=== PATIENT | female | born 1935 | race Caucasian/White ===

== ENCOUNTER → 2022-02-14 10:19 | Outpatient (BNVA) | payer MEDICARE, SELFPAY | PROVIDERS: PCP Surgery; Visit Provider Internal Medicine Rheumatology | DX: M35.3 Polymyalgia rheumatica (principal); M19.041 Primary osteoarthritis, right hand; M19.042 Primary osteoarthritis, left hand; M47.816 Spondylosis without myelopathy or radiculopathy, lumbar region | CPT/HCPCS: 99202 ==

== ENCOUNTER 2022-05-09 11:58 | Outpatient (REF) | payer MEDICARE, SELFPAY ==
[2022-05-09 13:38] LABS: MANUAL DIFF FLAG NO
[2022-05-09 13:43] LABS: Basophils Percent Auto 0.5 % (0-2); Eosinophils Percent Auto 0.7 % (0-4); Hemoglobin 13.3 g/dl (12.0-16.0); Imm Gran Abs Auto 0.03 X10*3/uL (0.00-0.03); Imm Gran Pct Auto 0.5 % (0.0-0.4); Lymphocytes Absolute Auto 2.1 X10*3/uL (1.2-4.9); Lymphocytes Percent Auto 33.9 % (20-40); Mean Corpuscular HGB Conc 32.4 g/dl (31.0-35.0); Mean Corpuscular Hemoglobin 28.3 pg (27.0-33.0); Mean Corpuscular Volume 87.2 fL (80.0-98.0); Mean Platelet Volume 10.1 fL (9.4-12.3); Monocytes Absolute Auto 0.5 X10*3/uL (0.1-1.2); Monocytes Percent Auto 8.5 % (2-11); Neutrophils Absolute Auto 3.4 x10*3/uL (2.0-8.3); Neutrophils Percent Auto 55.9 % (45-73); Platelet Count 171 X10*3/uL (160-400); Red Cell Distribution Width 13.6 % (11.0-16.0); White Blood Count 6.1 X10*3/uL (4.8-10.8)
[2022-05-09 14:22] LABS: C Reactive Protein 0.24 mg/dL (< or = 0.50)
[2022-05-09 14:35] LABS: Erythrocyte Sedimentation Rate 31 MM/HR (0-20)
== END 2022-05-09 11:59 | disposition home or self-care (01) ==
LOC: HO.10HDL 11:58
PROVIDERS: Visit Provider Internal Medicine Rheumatology
DX: M35.3 Polymyalgia rheumatica (principal)
CPT/HCPCS: 36415; 85025; 85652; 86140

== ENCOUNTER → 2022-05-15 14:59 | Outpatient (BNVA) | payer MEDICARE, SELFPAY | PROVIDERS: PCP Surgery; Visit Provider Internal Medicine Rheumatology | DX: M35.3 Polymyalgia rheumatica (principal); M48.062 Spinal stenosis, lumbar region with neurogenic claudication; M47.816 Spondylosis without myelopathy or radiculopathy, lumbar region; M19.041 Primary osteoarthritis, right hand; M19.042 Primary osteoarthritis, left hand; Z79.52 Long term (current) use of systemic steroids | CPT/HCPCS: 99212 ==

== ENCOUNTER → 2022-06-16 14:45 | Outpatient (BNVA) | payer MEDICARE, SELFPAY | PROVIDERS: PCP Surgery; Visit Provider Nurse Practitioner Family | DX: M25.551 Pain in right hip (principal); M25.552 Pain in left hip; M47.26 Other spondylosis with radiculopathy, lumbar region; M48.062 Spinal stenosis, lumbar region with neurogenic claudication | CPT/HCPCS: 99202 ==

== ENCOUNTER → 2022-07-27 14:55 | Outpatient (BNVA) | payer MEDICARE, SELFPAY | PROVIDERS: PCP Surgery; Visit Provider Nurse Practitioner Family | DX: M35.3 Polymyalgia rheumatica (principal); M79.7 Fibromyalgia; M85.80 Other specified disorders of bone density and structure, unspecified site; M25.552 Pain in left hip; M25.551 Pain in right hip; M47.26 Other spondylosis with radiculopathy, lumbar region; M48.062 Spinal stenosis, lumbar region with neurogenic claudication; E11.9 Type 2 diabetes mellitus without complications | CPT/HCPCS: 99212 ==

== ENCOUNTER 2022-08-01 12:52 | Outpatient (REF) | payer MEDICARE, SELFPAY | END 2022-08-01 12:53 | disposition home or self-care (01) | LOC: HO.SH 12:52 | PROVIDERS: Visit Provider Student in an Organized Health Care Education/Training Program | DX: Z01.118 Encounter for examination of ears and hearing with other abnormal findings (principal); H90.3 Sensorineural hearing loss, bilateral; H93.12 Tinnitus, left ear | CPT/HCPCS: 92557; 92567 ==

== ENCOUNTER 2022-08-29 06:14 | Outpatient (REF) | payer MEDICARE, SELFPAY ==
--- NOTE | ~2022-08-29 | FL_ITS ---
EXAMINATION: FL guidance in treatment room INDICATION: Reason for Exam M54.16 - Radiculopathy, lumbar region COMPARISON: None TECHNIQUE: Multiple fluoroscopic OR images were provided. FLUOROSCOPY TIME: 0.5 minutes DOSE AREA PRODUCT: 2.22 Gy-cm2 FINDINGS: Intraoperative fluoroscopy was obtained. No radiologist was in attendance. Please refer to operative report for complete evaluation. FL/FL guidance in treatment room IMPRESSION: Intraoperative fluoroscopy was obtained. No radiologist was in attendance. Please refer to operative report for complete evaluation.
== END 2022-08-29 06:15 | disposition home or self-care (01) ==
LOC: CF 06:14
PROVIDERS: Visit Provider Anesthesiology
DX: M54.16 Radiculopathy, lumbar region (principal); M48.062 Spinal stenosis, lumbar region with neurogenic claudication; M47.816 Spondylosis without myelopathy or radiculopathy, lumbar region; M25.551 Pain in right hip; M25.552 Pain in left hip; I10 Essential (primary) hypertension
CPT/HCPCS: 64483; J3301; Q9965

== ENCOUNTER 2022-08-30 12:15 | Outpatient (REF) | payer MEDICARE, SELFPAY ==
[2022-08-30 13:39] LABS: C Reactive Protein 0.31 mg/dL (< or = 0.50)
[2022-08-30 14:04] LABS: Erythrocyte Sedimentation Rate 34 MM/HR (0-20)
== END 2022-08-30 12:16 | disposition home or self-care (01) ==
LOC: HO.10HDL 12:15
PROVIDERS: Visit Provider Internal Medicine Rheumatology
DX: M35.3 Polymyalgia rheumatica (principal)
CPT/HCPCS: 36415; 85652; 86140

== ENCOUNTER → 2022-09-04 15:31 | Outpatient (BNVA) | payer MEDICARE, SELFPAY | PROVIDERS: PCP Surgery; Visit Provider Internal Medicine Rheumatology | DX: M48.062 Spinal stenosis, lumbar region with neurogenic claudication (principal); M35.3 Polymyalgia rheumatica | CPT/HCPCS: 99212 ==

== ENCOUNTER → 2022-09-28 14:35 | Outpatient (BNVA) | payer MEDICARE, SELFPAY | PROVIDERS: PCP Surgery; Visit Provider Nurse Practitioner Family | DX: M48.062 Spinal stenosis, lumbar region with neurogenic claudication (principal); M54.16 Radiculopathy, lumbar region; M47.816 Spondylosis without myelopathy or radiculopathy, lumbar region; M51.36 Other intervertebral disc degeneration, lumbar region | CPT/HCPCS: 99212 ==

== ENCOUNTER → 2022-11-08 13:36 | Outpatient (BNVA) | payer MEDICARE, SELFPAY | PROVIDERS: PCP Student in an Organized Health Care Education/Training Program; Referring Provider Nurse Practitioner Family; Visit Provider Neurological Surgery ==

== ENCOUNTER → 2022-11-08 13:36 | Outpatient (BNVA) | payer MEDICARE, SELFPAY | PROVIDERS: PCP Student in an Organized Health Care Education/Training Program; Visit Provider Neurological Surgery ==

== ENCOUNTER 2022-12-05 11:21 | Outpatient (REF) | payer MEDICARE, SELFPAY ==
[2022-12-05 13:56] LABS: Erythrocyte Sedimentation Rate 38 MM/HR (0-20)
[2022-12-05 13:58] LABS: C Reactive Protein 0.53 mg/dL (< or = 0.50)
== END 2022-12-05 11:22 | disposition home or self-care (01) ==
LOC: HO.10HDL 11:21
PROVIDERS: Visit Provider Internal Medicine Rheumatology
DX: M35.3 Polymyalgia rheumatica (principal)
CPT/HCPCS: 36415; 85652; 86140

== ENCOUNTER 2022-12-11 14:39 | Outpatient (AMB) | payer MEDICARE, SELFPAY ==
--- NOTE | 2022-12-11 14:48 | A.OFFVIS_ITS ---
Intake Vital Signs 12/11/22 15:01 Height 4 ft 9 in Weight 189 lb 6.033 oz BMI 41.0 BP 150/78 H Blood Pressure Location Lt brachial Position Sitting Pulse 71 Pulse Source Pulse Oximeter Temp 97.9 F Temp Source Skin Pulse Oximetry (%) 95 Oxygen Delivery Method Room Air Intake Visit Reasons: pmr Intake Note: Here to follow up on PMR. 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 Accompanied by: Self / Same As Patient Allergies amoxicillin [From Augmentin] Allergy (Intermediate, Verified 12/11/22 14:59) Hives clavulanic acid [From Augmentin] Allergy (Intermediate, Verified 12/11/22 14:59) Hives clindamycin Allergy (Intermediate, Verified 12/11/22 14:59) Hives amitriptyline Allergy (Unknown, Verified 12/11/22 14:59) Unknown azithromycin Allergy (Unknown, Verified 12/11/22 14:59) Unknown Medication List - Last Reconciled 12/11/22 by Feliz Murphy MD acetaminophen ER (Tylenol 8 Hour) 650 mg PO Q12H PRN ascorbic acid (vitamin C) mg PO BID atenolol 50 mg PO DAILY cholecalciferol (vitamin D3) 25 mcg PO BID cyanocobalamin (vitamin B-12) 1,000 mcg PO DAILY enalapril maleate 5 mg PO BID furosemide (Lasix) orally twice a week glipizide ER 2.5 mg PO DAILY ketorolac 0.5% drps ophthalmic (eye) metformin 1,000 mg PO BID multivitamin with minerals 1 cap PO DAILY prednisone 1 mg PO DAILY vitamin A 2,400 mcg PO BID zinc acetate 50 mg PO BID HPI HPI Comments History of Present Illness Details The patient returns today for evaluation of her PMR. At her last visit in July we had tapered her to 1 mg daily prednisone for a month and then off it. She had been on 1 mg b.i.d.. She says the cessation of the prednisone was 57 days ago. For the last 2 weeks she notes that she has had more pain at night, mostly involving the buttocks and thigh regions and occasionally the neck and shoulders. There has been no headache, jaw claudication or visual disturbance. There has been no peripheral swollen joint. [facility] Medical History Microalbuminuria Obesity PPD positive Carotid atherosclerosis Spinal stenosis Osteopenia Cataract Lumbar radiculopathy Hyperlipidemia Hypertension Diabetes Family History Mother Hypertension Diabetes Colon cancer Father No problems noted. Social History Household Members Other:: lives with son Housing: House Alcohol intake: never Patient Tobacco Use Status: Never used Tobacco e-Cigarette/Vaping Use: Never Used service: No Current occupational status: retired Current occupation: Former health aide Review of Systems Const Details: Low energy and fatigue. Not sleeping as well because of the nighttime pain. Negative for appetite change, weight change, fever, chills, malaise Eyes Details: Negative for vision change, dry eyes,headaches and dizziness Card Details: Negative chest pain, edema and syncope Resp Details: Negative for SOB, cough and wheezing GI Details: Negative indigestion/heartburn, nausea, abdominal pain, bowel changes, diarrhea, constipation and bloody stool. Endo Details: Negative for polyuria and polydypsia Luis Carlos/Lymph Details: Negative for excessive bruising or bleeding. Physical Exam Vital Signs: Last Vital Signs Temp 97.9 F 12/11/22 15:01 Pulse 71 12/11/22 15:01 BP 150/78 H 12/11/22 15:01 Pulse Ox 95 12/11/22 15:01 Oxygen Delivery Method Room Air 12/11/22 15:01 BMI result Body Mass Index 41.0 APPEARANCE: Patient in no acute distress EYES no redness, pupils equal and reactive to light, eyelids normal. No temporal artery tenderness, redness or swelling. EXTREMITIES:? No edema, no calf tenderness, normal peripheral pulses. NEURO:? Oriented and alert x3.? No focal weakness.? Reflexes symmetric.? Gait normal. SKIN:? No inflammatory or neoplastic lesions.? Normal color and turgor.? She has good dorsalis pedis and posterior tibial pulses bilaterally. JOINT EXAM:?? Cervical Spine:.? Mild pain with lateral flexion at 10 degrees of rotation at 30 degrees.? Motion is somewhat limited at that point.? There is some slight cervi adrienne muscle tenderness. Thoracic Spine:.? No scoliosis.? No tenderness on palpation. Lumbar Spine:.? Alignment normal.? Mild pain with flexion at 75 degrees.? No tenderness. Chest Wall:.? No tenderness, swelling, increased warmth or erythema. Hands:.? Right:? There is mild bony enlargement and tenderness at the base of the thumb.? There is mild bony enlargement without tenderness at the 2nd, 3rd and 5th DIP joints.? There is mild bony enlargement and some tenderness at the 2nd through 5th PIP joints.? There is no flexor tendon triggering which she does have some mild thenar atrophy without sensory loss.? Left:? There is mild to moderate bony enlargement and mild tenderness at the base of the thumb.? There is nontender bony enlargement at the 2nd and 3rd PIP joints.? Other joints have no swelling or tenderness.? There is mild thenar atrophy without sensory loss or flexor tendon triggering. Wrists:.? no discomfort with 75 degrees flexion or extension.? No tenderness or swelling. Elbows:. Normal pain-free range of motion without tenderness, swelling, increased warmth or erythema. Shoulders:.??Right: Mild pain with extremes of range of motion.? Mild anterior tenderness.? No abductor weakness or swelling.? No adenopathy.? Left:? no pain with extremes of motion with no tenderness, adenopathy, weakness, swelling, increased warmth or erythema. Hips:? Right: Mild buttock and lower back pain with more than 10 degrees of internal or 15 degrees of external rotation.? Left: Mild pain with the extremes of rotation but the pain is felt in the buttock and lower back region. Hip bursa:.? No tenderness. Knees:.?? Mild pains with extremes of flexion.? There is slight medial compartment tenderness and mild patellofemoral crepitus.? No effusions, redness or warmth. Ankles:.? Normal pain-free range of motion without tenderness, swelling, increased warmth or erythema. Feet:.? Normal pain-free range of motion with mild bony enlargement at the 1st MTP joint.? That area is slightly tender without soft tissue swelling or redness.? There is questionable loss of some sensation over the soles of the feet.? No breaks in the skin. Tender points:? No tenderness to digital palpation at the occiput, trapezius, second rib, lateral epicondyle, knees, greater trochanter and gluteal area bilaterally. Results Reviewed Results Reviewed: December 05: ESR 38, CRP 0.53 Ray 31: ESR 34, CRP 0.53 Assessment & Plan Assessment & Plan (1) Polymyalgia rheumatica: Comment: onset 07/2022 - better with prednisone Code(s): M35.3 - Polymyalgia rheumatica Plan PMR with what sounds like is some increased symptoms since we cut back on the prednisone. The esr and crp are also higher. A return of the nighttime pain in the thigh regions would be characteristic for PMR. It did not happen until she was off the prednisone for about 3 or 4 weeks however. There are no signs or symptoms of GCA. We will reinstitute the prednisone at 2 mg in the evening for 5 days and then 1 mg nightly. She will let us know if that does not work out. We will see her back in about 3 months with lab work before that visit. Orders: Orders Erythrocyte Sedimentation Rate Today M35.3 - Polymyalgia rheumatica C Reactive Protein Today M35.3 - Polymyalgia rheumatica Medications: Changed From prednisone 1 mg PO DAILY 30 tabs 3RF M35.3 - Polymyalgia rheumatica To prednisone Take 2 tab at night for 5 days, then one at night 35 tabs 3RF M35.3 - Polymyalgia rheumatica Coding Level of Care Code Est Pt Level 3 (41121) Diagnoses Polymyalgia rheumatica M35.3
[2022-12-11 15:01] VITALS: BP 150/78; PULSE 71; TEMP 36.6; O2SAT 95; BMI 41.0
== END 2022-12-11 15:31 | disposition home or self-care (01) ==
PROVIDERS: PCP Student in an Organized Health Care Education/Training Program; Referring Provider Student in an Organized Health Care Education/Training Program; Visit Provider Internal Medicine Rheumatology
DX: M35.3 Polymyalgia rheumatica (principal)
CPT/HCPCS: 99213

== ENCOUNTER → 2022-12-11 14:39 | Outpatient (BNVA) | payer MEDICARE, SELFPAY | PROVIDERS: PCP Student in an Organized Health Care Education/Training Program; Referring Provider Student in an Organized Health Care Education/Training Program; Visit Provider Internal Medicine Rheumatology | DX: M35.3 Polymyalgia rheumatica (principal) | CPT/HCPCS: 99212 ==

== ENCOUNTER 2022-12-13 15:14 | Outpatient (REF) | payer MEDICARE, SELFPAY ==
--- NOTE | ~2022-12-13 | MR_ITS ---
EXAMINATION: MR LUMBAR SPINE WITHOUT CONTRAST CLINICAL INFORMATION: Spinal stenosis, lumbar region with neurogenic claudication. COMPARISON: There are no prior studies available for comparison. TECHNIQUE: MRI of the lumbar spine was obtained using routine sequences without contrast. FINDINGS: VERTEBRAL BODIES AND PARASPINAL STRUCTURES: There is a transitional vertebra at the thoracolumbar junction, and there are likely riblets off the body of L1. The lowermost fully formed intervertebral disc will be designated L5-S1. This should be correlated with plain films before any intervention is undertaken. There are mild grade 1 anterolistheses of L4 on L5 and L5 on S1. There are mild retrolistheses of L2 on L3 and L3 on L4. There is disc desiccation throughout the lumbar spine. There is narrowing of intervertebral disc height at L5-S1. Vertebral body heights are maintained and no fractures are demonstrated. Overall, marrow signal is homogenous. There are multiple bilateral renal cysts, the most prominent at the lower pole of the left kidney. The visualized pelvic structures are unremarkable. CONUS MEDULLARIS AND CAUDA EQUINA: Normal, terminating at the level of L2. The lower thoracic spinal cord has normal signal. There is marked crowding of the cauda equina nerve roots from central stenosis at multiple levels. The filum terminale appears normal. 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 L1-L2: There is mild bilateral facet arthropathy. There is a diffuse disc bulge with mild flattening of the ventral thecal sac and there is mild central stenosis. The neural foramina are patent bilaterally. L2-L3: There is mild bilateral facet arthropathy. There is a posterior disc protrusion which is focally most prominent just to the left of midline, and there is distortion of the ventral thecal sac and crowding of the cauda equina nerve roots. There is moderate central stenosis. The neural foramina are patent bilaterally. L3-L4: There is moderate bilateral facet arthropathy with ligamenta flava hypertrophy. There is a diffuse disc bulge, with compression of the thecal sac and there is crowding of the cauda equina nerve roots. There is marked narrowing of the bilateral subarticular recesses, and there is severe central stenosis. There is a right foraminal disc protrusion extending far laterally with impingement on the exiting and extraforaminal right L3 nerve root. There is no definite impingement on the exiting left L3 nerve root. L4-L5: There is moderate bilateral facet arthropathy with ligamenta flava hypertrophy. There is a broad-based posterior disc protrusion which compresses the thecal sac and markedly narrows the subarticular recesses, more severely on the left. There is severe central stenosis. There is a left foraminal disc protrusion/extrusion extending far laterally with impingement on the exiting and extraforaminal left L4 nerve root. There is no definite impingement on the exiting right L4 nerve root. L5-S1: There is severe bilateral facet arthropathy with ligamenta flava hypertrophy. There is unroofing of the disc as a result of the anterolisthesis. There is a left foraminal disc protrusion extending far laterally with impingement on the exiting and extraforaminal left L5 nerve root. There is marked narrowing of the bilateral subarticular recesses, and there is moderate to severe central stenosis. There is no definite impingement on the exiting right L5 nerve root. MR/MR lumbar spine wo con IMPRESSION: 1. There is a transitional vertebra at the thoracolumbar junction, and the lowermost fully formed intervertebral disc will be designated L5-S1. This should be correlated with plain films before any intervention is undertaken. 2. 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 3. At L3-L4 there is facet arthropathy and there is a diffuse disc bulge. There is marked narrowing of the bilateral subarticular recesses and there is severe central stenosis. A right foraminal disc protrusion extends far laterally with impingement on the exiting and extraforaminal right L3 nerve root. 4. At L4-L5 there is facet arthropathy and there is a broad-based posterior disc protrusion. There is marked narrowing of the subarticular recesses and there is severe central stenosis. A left foraminal disc protrusion/extrusion extends far laterally with impingement on the exiting and extraforaminal left L4 nerve root. 5. At L5-S1 there is severe facet arthropathy. There is unroofing of the disc as a result of the anterolisthesis. There is a left foraminal disc protrusion extending far laterally with impingement on the exiting and extraforaminal left L5 nerve root. There is moderate to severe central stenosis.
== END 2022-12-13 15:15 | disposition home or self-care (01) ==
LOC: HO.MRI 15:14
PROVIDERS: PCP Student in an Organized Health Care Education/Training Program; Visit Provider Nurse Practitioner Family
DX: M48.062 Spinal stenosis, lumbar region with neurogenic claudication (principal); M54.16 Radiculopathy, lumbar region; M47.816 Spondylosis without myelopathy or radiculopathy, lumbar region
CPT/HCPCS: 72148

== ENCOUNTER 2022-12-20 11:07 | Outpatient (AMB) | payer MEDICARE, SELFPAY ==
--- NOTE | 2022-12-20 11:20 | A.SPINEOV_ITS ---
Intake Intake Visit Reasons: Spinal stenosis, lumbar region Intake Note: Ms. Burton is here today c/o back pain. [place] [facility] [place] 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 She is a pleasant 87-year-old female comes in today with a chief complaint of longstanding low back pain with radiation of pain into her bilateral anterior and posterior lower extremities terminating below the knee. She also endorses some numbness/tingling in her left 2nd through 4th phalanges, but states that this issues not as significant as her low back pain which she wishes to address today. She reports that she 1st noticed the pain back in 2009 and was referred to [facility] in [facility]. She reports that they did epidural injections in her lumbar spine which gave her complete symptom relief for 3 years. She states she has since attempted to have additional epidural injections but only experiences mild to moderate relief for short intervals (weeks to months). She has also since received L4-5 and L5-S1 facet injections, L5 transforaminal injections, and bilateral SI joint injections, all of which she states were not helpful for her. She reports that she is now only able to walk 3-5 minutes at a time before needing to sit down and rest. She endorses extreme difficulty shopping or going to the grocery store, and states that the o nly way she the able to accomplish the staff is if she leans over a shopping cart to do so. She has tried to utilize [id number] medications as well including Tylenol, ibuprofen, ice, heat, and pain patches without significant alleviation of symptoms. She also most recently attempted physical therapy and was only able to make it to 4 sessions before she had to stop due to the pain[place] [facility] [place] her for workup of spinal stenosis with neurogenic claudication. PMH: Carotid atherosclerosis, Cataract, Diabetes, Hyperlipidemia, Hypertension, Lumbar radiculopathy, Microalbuminuria, Osteopenia. Social hx: Patient does not smoke, reports no substance use. Medications: Metformin, glipizide, atenolol, enalapril, prednisone, vitamin D3, vitamin-B 12, vitamin-C, Lasix, ketorolac. Allergies: Amoxicillin, Augmentin, clindamycin, amitriptyline, azithromycin. Physical exam: Mobility / function: Patient ambulates well, can rise from a seated position without difficulty. Sensation: Grossly intact CN: II-XII grossly intact. Strength Testing Upper Extremities: - Deltoid 5/5 right 5/5 left - Biceps 5/5 right 5/5 left - Triceps 5/5 right 5/5 left - Wrist Ext 5/5 right 5/5 left - Wrist Flex 5/5 right 5/5 left - Hand resource efficiency manager 4/5 right 4/5 left - Interossei 5/5 right 5/5 left Strength Testing Lower Extremities: - Hip flexion 5/5 right 5/5 left - Knee extension 4/5 right 4/5 left - Dorsiflexion 5/5 right 5/5 left - Plantar flex 5/5 right 5/5 left - EHL 5/5 right 5/5 left Reflexes: - Biceps Right - 2+ Left - 2+ - Triceps Right - 2+ Left - 2+ - Patellar Right - 2+ Left - 2+ - Achilles Right - 2+ Left - 2+ - Plantar Right - 2+ Left - 2+ Pain limits the patients ability to elicit full strength. (-) Sanchez?s sign (-) Clonus Imaging review: MRI lumbar spine from 12/13/22 shows severe spinal stenosis at L3-4, L4-5, L5-S1. Imaging reviewed with Dr. Martínez. Impression: The patient is a pleasant 87-year-old female was referred to our service by pain management [facility] for workup of spinal stenosis and neurogenic claudication. She states that she has had persistent pain over the course the last 13 years that has become increasingly worse as the years have progressed. Her only real improvement of symptoms is been with epidural injections in the lumbar spine specifically L5-S1. Because she has had improvement of symptoms near these levels of lumbar stenosis for weeks to months and even years at a time Dr. Martínez is suggesting that she have an L3-4, L4-5, and L5-S1 laminotomy/lumbar decompression performed. She is tentatively scheduled for surgery on February 19. She requested to stay overnight postoperatively. She will need to obtain surgical clearance from primary care physician prior to surgery in order to proceed. She was encouraged to stop her prednisone 1-2 weeks prior to surgery. She reports being on no anticoagulation medications at this time. Sarah was given risk and benefits of surgery including but not limited to infection, hematoma, nerve injury, durotomy, weakness, bowel/bladder injury, and persistent pain. As well as the option to continue with conservative treatment and patient wishes to proceed with surgery. She is aware she should not take Motrin / Aspirin 7 days prior to surgery. All questions were answered to the best of our ability. If there is anything about this patients medical history that we have overlooked or concerns you have about us proceeding with surgery we would appreciate any input you can offer. Thank you for allowing us to care for your patient. The total time spent with this visit with this patient was 60 minutes reviewing history, physical exam, MRI lumbar spine imaging review, and implementation of treatment plan or further diagnostic testing. Ubaldo Martínez MD, PhD [facility] Coding Level of Care Code New Pt Level 5 (26304) Diagnoses Spinal stenosis M48.00
== END 2022-12-20 12:37 | disposition home or self-care (01) ==
PROVIDERS: PCP Student in an Organized Health Care Education/Training Program; Referring Provider Nurse Practitioner Family; Visit Provider Neurological Surgery
DX: M48.00 Spinal stenosis, site unspecified (principal)
CPT/HCPCS: 99205

== ENCOUNTER → 2022-12-20 11:07 | Outpatient (BNVA) | payer MEDICARE, SELFPAY | PROVIDERS: PCP Student in an Organized Health Care Education/Training Program; Referring Provider Nurse Practitioner Family; Visit Provider Neurological Surgery ==

== ENCOUNTER 2023-03-07 11:47 | Outpatient (REF) | payer MEDICARE, SELFPAY ==
[2023-03-07 13:39] LABS: C Reactive Protein 0.63 mg/dL (< or = 0.50)
[2023-03-07 14:43] LABS: Erythrocyte Sedimentation Rate 44 MM/HR (0-20)
== END 2023-03-07 11:48 | disposition home or self-care (01) ==
LOC: HO.10HDL 11:47
PROVIDERS: Visit Provider Internal Medicine Rheumatology
DX: M35.3 Polymyalgia rheumatica (principal)
CPT/HCPCS: 36415; 85652; 86140

== ENCOUNTER 2023-03-14 11:17 | Outpatient (AMB) | payer MEDICARE, SELFPAY ==
--- NOTE | 2023-03-14 11:18 | A.OFFVIS_ITS ---
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 Accompanied by: Self / Same As Patient Allergies amitriptyline Allergy (Severe, Verified 03/14/23 11:25) diarrhea, hallucinations, swelling edema amoxicillin [From Augmentin] Allergy (Severe, Verified 03/14/23 11:25) Hives clavulanic acid [From Augmentin] Allergy (Severe, Verified 03/14/23 11:25) Hives azithromycin Allergy (Intermediate, Verified 03/14/23 11:25) Hives clindamycin Allergy (Intermediate, Verified 03/14/23 11:25) Hives Medication List - Last Reconciled 03/14/23 by Blanca Solano RN acetaminophen ER (Tylenol 8 Hour) 650 mg PO Q12H PRN ascorbic acid (vitamin C) 500 mg PO BID atenolol 50 mg PO DAILY cholecalciferol (vitamin D3) 25 mcg PO BID enalapril maleate 7.5 mg PO BID furosemide (Lasix) 20 mg PO DAILY glipizide ER 2.5 mg PO DAILY ketorolac 0.5% drps ophthalmic (eye) [magnesium ] metformin 500 mg PO BID multivitamin with minerals 1 cap PO DAILY prednisone Take 2 tab at night for 5 days, then one at night vitamin A 2,400 mcg PO BID zinc acetate 50 mg PO BID HPI HPI Comments History of Present Illness Details The patient returns today for evaluation of her PMR and osteoarthritis. She presently is taking 1 mg prednisone every evening. At her last visit she seemingly had the onset of more hip and shoulder pain with morning stiffness that sounded like she had some return of PMR symptoms so we restarted her prednisone. She still has some shoulder, neck, lower back and leg pain but but they seems to be not occurring with morning stiffness. She had been seeing Pain Management and had an unsuccessful injection in the back so was referred to spine surgery. Apparently a decompressive procedure was planned for January but then she developed COVID. She now is going to go back to the spine people and see if still they will reschedule her. She has no headache or jaw claudication. She has some nighttime numbness and pain in the feet, apparently thought to be a diabetic neuropathy picture. She was prescribed 100 mg gabapentin for that but it made her lightheadedo she had to stop it. [facility] Medical History Microalbuminuria Obesity PPD positive Carotid atherosclerosis Spinal stenosis Osteopenia Cataract Lumbar radiculopathy Hyperlipidemia Hypertension Diabetes Family History Mother Hypertension Diabetes Colon cancer Father No problems noted. Social History Household Members Other:: adult son Housing: House Do you presently have visiting nurse or other home services: No Alcohol intake: never Patient Tobacco Use Status: Former Tobacco user Quit Date: 1959 Tobacco use type: Cigarette e-Cigarette/Vaping Use: Never Used service: No Current occupational status: retired Current occupation: Former health aide Review of Systems Const Details: Negative for appetite change, weight change, fever, chills, malaise and fatigue Eyes Details: Negative for vision change, dry eyes,headaches and dizziness ENT Details: Negative for hearing change, tinnitus, oral ulcer, nose bleeds and oral dryness. Card Details: Negative chest pain, edema and syncope Resp Details: Negative for SOB, cough and wheezing GI Details: Negative indigestion/heartburn, nausea, abdominal pain, bowel changes, diarrhea, constipation and bloody stool. Neuro Details: Some numbness at night in the feet. She was told she had carpal tunnel syndrome in the left hand gets occasional nocturnal numbness. Negative for epilepsy, palsy, stroke, changes in speech, and weakness Endo Details: Negative for polyuria and polydypsia Luis Carlos/Lymph Details: Negative for excessive bruising or bleeding. Physical Exam Vital Signs: Last Vital Signs Temp 97.2 F 03/14/23 11:19 Pulse 70 03/14/23 11:19 Resp 18 03/14/23 11:19 BP 150/60 H 03/14/23 11:19 Pulse Ox 97 03/14/23 11:19 Oxygen Delivery Method Room Air 03/14/23 11:19 BMI result Body Mass Index 37.1 APPEARANCE: Patient in no acute distress EYES no redness, pupils equal and reactive to light, eyelids normal. No temporal artery tenderness, redness or swelling. EXTREMITIES:? No edema, no calf tenderness, normal peripheral pulses. NEURO:? Oriented and alert x3.? No focal weakness.? Reflexes symmetric.? Gait normal. SKIN:? No inflammatory or neoplastic lesions.? Normal color and turgor.? She has good dorsalis pedis and posterior tibial pulses bilaterally. JOINT EXAM:?? Cervical Spine:.? Mild pain with lateral flexion at 10 degrees of rotation at 45 degrees.? Motion is somewhat limited at that point.? There is some slight cervical muscle tenderness. Thoracic Spine:.? No scoliosis.? No tenderness on palpation. Lumbar Spine:.? Alignment normal.? Mild pain with flexion at 75 degrees.? No tenderness. Chest Wall:.? No tenderness, swelling, increased warmth or erythema. Hands:.? Right:? There is mild bony enlargement and tenderness at the base of the thumb.? There is mild bony enlargement without tenderness at the 2nd, 3rd and 5th DIP joints.? There is mild bony enlargement and some tenderness at the 2nd through 5th PIP joints.? There is no flexor tendon triggering which she does have some mild thenar atrophy without sensory loss.? Left:? There is mild to moderate bony enlargement and mild tenderness at the base of the thumb.? There is nontender bony enlargement at the 2nd and 3rd PIP joints.? Other joints have no swelling or tenderness.? There is mild thenar atrophy without sensory loss or flexor tendon triggering. Wrists:. Left: No discomfort with 75 degrees flexion or extension. No tenderness or swelling. Positive Phalen's test. Negative Tinel sign. Right:? no discomfort with 75 degrees flexion or extension.? No tenderness or swelling. Negative Phalen's and Tinel signs. Elbows:. Normal pain-free range of motion without tenderness, swelling, increased warmth or erythema. Shoulders:.??Right: Mild pain with extremes of range of motion.? Mild anterior tenderness.? No abductor weakness or swelling.? No adenopathy.? Left:? no pain with extremes of motion with no tenderness, adenopathy, weakness, swelling, increased warmth or erythema. Hips:? Right: Mild buttock and lower back pain with more than 10 degrees of internal or 15 degrees of external rotation.? Left: Mild pain with the extremes of rotation but the pain is felt in the buttock and lower back region. Hip bursa:.? No tenderness. Knees:.?? Mild pains with extremes of flexion.? There is slight medial compartment tenderness and mild patellofemoral crepitus.? No effusions, redness or warmth. Ankles:.? Normal pain-free range of motion without tenderness, swelling, increased warmth or erythema. Feet:.? Normal pain-free range of motion with mild bony enlargement at the 1st MTP joint.? That area is slightly tender without soft tissue swelling or redness.? There is questionable loss of some sensation over the soles of the feet.? No breaks in the skin. Tender points:? No tenderness to digital palpation at the occiput, trapezius, second rib, lateral epicondyle, knees, greater trochanter and gluteal area bilaterally. ? Results Reviewed Results Reviewed: Laboratory Tests 12/05/22 12/05/22 03/07/23 11:26 11:26 11:50 ESR 38 H 44 H C-Reactive Protein 0.53 H 03/07/23 11:50 ESR C-Reactive Protein 0.63 H [facility] Imaging Result Report Patient: Sarah Burton Date of Service: 02/10/21 ? ? Patient Gender: Female Ordering Provider: Harpreet Hwang : 1935 ? ? ? Final 0 DXA BONE DENSITY STUDY 1+ SITS AXIAL SKEL Exam Date: 02/10/2021 2:59 PM Ordering Diagnosis: Osteopenia, unspecified location ? ? BONE DENSITY ? Lumbar Spine T-score is 0.0 (SD relative to 20-29 y/o adult) Z-score is +2.9 (SD relative to age matched peers) This is normal by criteria defined by the WHO. ? Left Hip T-score is -0.9 Z-score is +1.7 This is normal by criteria defined by the WHO. ? ? Impression: ? Based on the World Health Organization criteria, Sarah Burton should be classified as having normal bone density. ? ? [facility] Department of Internal Medicine recommends using National Osteoporosis Foundation (NOF) guidelines in treatment decisions related to osteoporosis. NOF guidelines suggest considering treatment for postmenopausal women and men aged 50 or older presenting with the following: ? * History of hip or vertebral fracture. * T-score less than or equal to -2.5 (DXA) at the femoral neck, total hip, or spine, after appropriate evaluation to exclude secondary causes. * Low bone mass (T-score between -1.0 and -2.5 at the femoral neck or spine) AND a 10-year probability of a hip fracture greater than or equal to 3% OR a 10- year probability of a major osteoporosis-related fracture greater than or eq ual to 20% based on the [place]-adapted WHO algorithm ? ? Please note that all treatment decisions require clinical judgment and consideration of individual patient factors, including patient preferences, co- morbidities, previous drug use, risk factors not captured in the FRAX model (e.g., frailty, falls, vitamin D deficiency, increased bone turnover, interval significant decline in bone density) and possible under- or over-estimation of fracture risk by FRAX. ? ? ? Reading Radiologist: Cc: Assessment & Plan Assessment & Plan (1) Osteoarthritis of lumbar spine: Code(s): M47.816 - Spondylosis without myelopathy or radiculopathy, lumbar region (2) Osteoarthritis of hands, bilateral: Code(s): M19.041 - Primary osteoarthritis, right hand; M19.042 - Primary osteoarthritis, left hand (3) Spinal stenosis of lumbar region with neurogenic claudication: Code(s): M48.062 - Spinal stenosis, lumbar region with neurogenic claudication (4) Polymyalgia rheumatica: Comment: onset 07/2022 - better with prednisone Code(s): M35.3 - Polymyalgia rheumatica Plan PMR with still some hip and shoulder pains but I think these are likely due to degenerative processes-particularly in the hands and the lower back region. She does not seem to have much in the way of morning stiffness. There is no small joint swelling to suggest synovitis. The CRP is only minimally elevated than the sed rate is chronically moderately elevated. I do not think we need to add additional prednisone but just keep her at this low nightly dose of 1 mg. She is more bothered by the back pain that radiates to the legs. I think she should follow-up with neuro surgery for that particular problem. We will aim to see her back in 3-4 months. I will order lab work to be done before that visit. Orders: Orders Erythrocyte Sedimentation Rate Today M35.3 - Polymyalgia rheumatica C Reactive Protein Today M35.3 - Polymyalgia rheumatica Coding Level of Care Code Est Pt Level 3 (42924) Diagnoses Osteoarthritis of lumbar spine M47.816 Osteoarthritis of hands, bilateral M19.041; M19.042 Spinal stenosis of lumbar region with neurogenic claudication M48.062 Polymyalgia rheumatica M35.3
[2023-03-14 11:19] VITALS: BP 150/60; PULSE 70; RESP 18; TEMP 36.2; O2SAT 97; BMI 37.1
== END 2023-03-14 12:01 | disposition home or self-care (01) ==
LOC: HO.RHE 11:17
PROVIDERS: PCP Student in an Organized Health Care Education/Training Program; Visit Provider Internal Medicine Rheumatology
DX: M47.816 Spondylosis without myelopathy or radiculopathy, lumbar region (principal); M19.041 Primary osteoarthritis, right hand; M19.042 Primary osteoarthritis, left hand; M48.062 Spinal stenosis, lumbar region with neurogenic claudication; M35.3 Polymyalgia rheumatica
CPT/HCPCS: 99213

== ENCOUNTER → 2023-03-14 11:17 | Outpatient (BNVA) | payer MEDICARE, SELFPAY | PROVIDERS: PCP Student in an Organized Health Care Education/Training Program; Visit Provider Internal Medicine Rheumatology | DX: M47.816 Spondylosis without myelopathy or radiculopathy, lumbar region (principal); M19.041 Primary osteoarthritis, right hand; M19.042 Primary osteoarthritis, left hand; M48.062 Spinal stenosis, lumbar region with neurogenic claudication; M35.3 Polymyalgia rheumatica | CPT/HCPCS: 99212 ==

== ENCOUNTER → 2023-05-31 13:18 | Outpatient (BNV) | payer MEDICARE, SELFPAY | PROVIDERS: PCP Student in an Organized Health Care Education/Training Program; Visit Provider Internal Medicine | DX: I10 Essential (primary) hypertension (principal); Z01.810 Encounter for preprocedural cardiovascular examination; M48.00 Spinal stenosis, site unspecified | CPT/HCPCS: 93010 ==

== ENCOUNTER 2023-07-03 06:38 | Inpatient (IN) | payer MEDICARE, SELFPAY ==
[2023-02-14 11:57] VITALS: BMI 36.3
--- NOTE | 2023-05-31 | ECG_ITS ---
Test Reason : pre op Blood Pressure : / mmHG Vent. Rate : 066 BPM Atrial Rate : 066 BPM P-R Int : 158 ms QRS Dur : 084 ms QT Int : 400 ms P-R-T Axes : 072 000 052 degrees QTc Int : 419 ms Normal sinus rhythm Normal ECG No previous ECGs available Referred By: Mary Mccall Electronically Signed By:CLAUDIA ANDERS
[2023-05-31 12:18] VITALS: BP 158/72; PULSE 63; RESP 16; O2SAT 97; BMI 36.1
--- NOTE | 2023-05-31 12:40 | HO.ANESPROP2 ---
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 Recent nystatin swish and swallow by ENT. Rx completed PMR. Stopped prednisone >30 days ago Emergent CCY 04/14/23 at [facility]. Found maglignancy. Seen by med-onc. Will f/u with treatment plan after recovered from spine surgery. DM. FBS ~115-130 PMFSH Active Problems Active Problems: All Active Problems (Updated 05/31/23 @ 12:37 by Carola Ortiz, ASIYA) Lumbar degenerative disc disease (Acute) Bilateral hip pain (Acute) Spinal stenosis of lumbar region with neurogenic claudication (Acute) Osteoarthritis of hands, bilateral (Acute) Osteoarthritis of lumbar spine (Acute) Polymyalgia rheumatica (Acute) Diverticulitis (Acute) Spinal stenosis (Acute) Hyperlipidemia (Acute) Obesity (Acute) Carotid atherosclerosis (Acute) Lumbar radiculopathy (Acute) PPD positive (Acute) Hypertension (Acute) Diabetes (Acute) Past Medical History Medical History (Updated 05/31/23 @ 12:37 by Carola Ortiz, ASIYA) Diabetes Microalbuminuria Obesity PPD positive Carotid atherosclerosis Spinal stenosis Osteopenia Lumbar radiculopathy Hyperlipidemia Hypertension Diabetes Family History Family History Mother Hypertension Diabetes Colon cancer Father No problems noted. Family history of problems with anesthesia: No Surgical History Surgical History (Updated 05/31/23 @ 12:35 by Carola Ortiz RN) Hx of bilateral cataract extraction Hx of colonoscopy History of excision of pilonidal cyst Hx of tonsillectomy Hx of appendectomy History of hysterectomy Hx laparoscopic cholecystectomy (04/14/23) History of Problems with Anesthesia: No Social History Social History (Updated 05/31/23 @ 12:50 by Carola Ortiz, ASIYA) Household Members Other:: lives with son Housing: House Are you a primary critical care registered nurse to a significant other at home: No Do you presently have visiting nurse or other home services: No Alcohol intake: never Patient Tobacco Use Status: Former Tobacco user Quit Date: Tobacco use type: Cigarette e-Cigarette/Vaping Use: Never Used Second Hand Smoke Exposure: Yes (did have smoker in the home 15 yrs ago, not now) Use of substances other than those prescribed or required for medical reasons: No Have you been hit, kicked, punched, or otherwise hurt by someone within the past year? If so, by whom?: No Are you DNR?: No Advance Directives: No Advance Directives Information Provided: Yes Advance Directives on File: No Recently lost weight without trying: No How much weight loss: 2-13 pounds Eating poorly because of decreased appetite: Yes Nutrition screen score: 2 Nutrition Risks: Surgical patient >75years service: No Current occupational status: retired Current occupation: Former health aide Meds Allergies Allergy/AdvReac Type Severity Reaction Status Date / Time amitriptyline Allergy Severe diarrhea, Verified 05/31/23 12:06 hallucinations, swelling edema amoxicillin [From Augmentin] Allergy Severe Hives Verified 05/31/23 12:06 clavulanic acid Allergy Severe Hives Verified 05/31/23 12:06 [From Augmentin] azithromycin Allergy Intermediate Hives Verified 05/31/23 12:06 clindamycin Allergy Intermediate Hives Verified 05/31/23 12:06 Home Medications Medication Instructions Recorded Confirmed Last Taken Type glipizide 2.5 mg tablet, extended 2.5 mg PO DAILY 02/07/22 03/14/23 Unknown History release 24 hr metformin 500 mg tablet 500 mg PO BID 02/07/22 05/31/23 Unknown History multivitamin with minerals 1 cap PO DAILY 02/07/22 03/14/23 Unknown History ascorbic acid (vitamin C) 500 mg 500 mg PO BID 02/14/22 03/14/23 Unknown History capsule cholecalciferol (vitamin D3) 25 50 mcg PO BID 02/14/22 05/31/23 Unknown History mcg (1,000 unit) capsule vitamin A 2,400 mcg capsule 2,400 mcg PO BID 02/14/22 03/14/23 Unknown History zinc acetate 50 mg (zinc) capsule 50 mg PO BID 02/14/22 03/14/23 Unknown History enalapril maleate 5 mg tablet 10 mg PO BID 07/27/22 05/31/23 Unknown History furosemide 20 mg tablet (Lasix) 20 mg PO DAILY 09/04/22 03/14/23 Unknown History atenolol 50 mg tablet 50 mg PO DAILY 12/08/22 03/14/23 Unknown History ketorolac 0.5 % eye drops drp ophthalmic (eye) 12/08/22 03/14/23 Unknown History PreserVision AREDS 1 cap PO BID 05/31/23 05/31/23 Unknown History acetaminophen 500 mg tablet 1,000 mg PO BID PRN Pain 05/31/23 05/31/23 Unknown History cyanocobalamin (vitamin B-12) 1,000 mcg PO DAILY 05/31/23 05/31/23 Unknown History 1,000 mcg tablet (Vitamin B-12) gabapentin 100 mg capsule 100 mg PO BEDTIME 05/31/23 05/31/23 Unknown History glipizide 10 mg tablet 10 mg PO DAILY 05/31/23 05/31/23 Unknown History Exam Height,Weight and Vital Signs: Height 5 ft Weight 83.8 kg Last Vital Signs Pulse 63 05/31/23 12:18 Resp 16 05/31/23 12:18 BP 158/72 H 05/31/23 12:18 Pulse Ox 97 05/31/23 12:18 O2 Del Method Room Air 05/31/23 12:18 Pertinent Lab Results Pertinent Lab Results: Laboratory Tests 05/31/23 13:09 WBC 6.8 Hgb 13.8 Hct 41.4 Plt Count 191 Sodium 144 Potassium 4.0 Chloride 103 Carbon Dioxide 29 BUN 19 H Creatinine 0.75 Narrative Narrative: EKG 05/2023 Vent. Rate : 066 BPM Atrial Rate : 066 BPM P-R Int : 158 ms QRS Dur : 084 ms QT Int : 400 ms P-R-T Axes : 072 000 052 degrees QTc Int : 419 ms Normal sinus rhythm Normal ECG No previous ECGs available Airway Mallampati Class: III TM Dist: >3cm Neck ROM: Full Loose/Missing/Broken Teeth: No (Permanent bridge left lower, denies loose/broken) Heart: RRR Lungs: CTAB Assessment and Plan Assessment Anesthesia Assessment: Anesthesia Plan Discussed and PAT Visit Final Anesthetic Review Family History of Problems with Anesthesia: No History of Problems with Anesthesia: No Documented by User: Mady Nagy MD 07/03/23 08:55 [facility] Active Problems Active Problems: All Active Problems (Updated 07/03/23 @ 08:34 by Mady Nagy MD) Lumbar degenerative disc disease (Acute) Bilateral hip pain (Acute) Spinal stenosis of lumbar region with neurogenic claudication (Acute) Osteoarthritis of hands, bilateral (Acute) Osteoarthritis of lumbar spine (Acute) Polymyalgia rheumatica (Acute) Diverticulitis (Acute) Spinal stenosis (Acute) Hyperlipidemia (Acute) Obesity (Acute) Carotid atherosclerosis (Acute) Lumbar radiculopathy (Acute) PPD positive (Acute) Hypertension (Acute)- poorly controlled. Has seen PCP for this in the past. On Atenolol, Enalapril and Furosemide. BP high o/a this morning-210/80. (Did not take any of her medications). Now 191/87 Diabetes (Acute) Past Medical History Medical History (Updated 05/31/23 @ 12:37 by Carola Ortiz RN) Diabetes Microalbuminuria Obesity PPD positive Carotid atherosclerosis Spinal stenosis Osteopenia Lumbar radiculopathy Hyperlipidemia Hypertension Diabetes Family History Family History Mother Hypertension Diabetes Colon cancer Father No problems noted. Family history of problems with anesthesia: No Surgical History Surgical History (Updated 05/31/23 @ 12:35 by Carola Ortiz RN) Hx of bilateral cataract extraction Hx of colonoscopy History of excision of pilonidal cyst Hx of tonsillectomy Hx of appendectomy History of hysterectomy Hx laparoscopic cholecystectomy (04/14/23) History of Problems with Anesthesia: No Social History Social History (Updated 05/31/23 @ 12:50 by Carola Ortiz RN) Household Members Other:: lives with son Housing: House Are you a primary critical care registered nurse to a significant other at home: No Do you presently have visiting nurse or other home services: No Alcohol intake: never Patient Tobacco Use Status: Former Tobacco user Quit Date: Tobacco use type: Cigarette e-Cigarette/Vaping Use: Never Used Second Hand Smoke Exposure: Yes (did have smoker in the home 15 yrs ago, not now) Use of substances other than those prescribed or required for medical reasons: No Have you been hit, kicked, punched, or otherwise hurt by someone within the past year? If so, by whom?: No Are you DNR?: No Advance Directives: No Advance Directives Information Provided: Yes Advance Directives on File: No Recently lost weight without trying: No How much weight loss: 2-13 pounds Eating poorly because of decreased appetite: Yes Nutrition screen score: 2 Nutrition Risks: Surgical patient >75years service: No Current occupational status: retired Current occupation: Former health aide Meds Allergies Allergy/AdvReac Type Severity Reaction Status Date / Time amitriptyline Allergy Severe diarrhea, Verified 05/31/23 12:06 hallucinations, swelling edema amoxicillin [From Augmentin] Allergy Severe Hives Verified 05/31/23 12:06 clavulanic acid Allergy Severe Hives Verified 05/31/23 12:06 [From Augmentin] azithromycin Allergy Intermediate Hives Verified 05/31/23 12:06 clindamycin Allergy Intermediate Hives Verified 05/31/23 12:06 Home Medications Medication Instructions Recorded Confirmed Last Taken Type glipizide 2.5 mg tablet, extended 2.5 mg PO DAILY 02/07/22 03/14/23 Unknown History release 24 hr metformin 500 mg tablet 500 mg PO BID 02/07/22 05/31/23 Unknown History multivitamin with minerals 1 cap PO DAILY 02/07/22 03/14/23 Unknown History ascorbic acid (vitamin C) 500 mg 500 mg PO BID 02/14/22 03/14/23 Unknown History capsule cholecalciferol (vitamin D3) 25 50 mcg PO BID 02/14/22 05/31/23 Unknown History mcg (1,000 unit) capsule vitamin A 2,400 mcg capsule 2,400 mcg PO BID 02/14/22 03/14/23 Unknown History zinc acetate 50 mg (zinc) capsule 50 mg PO BID 02/14/22 03/14/23 Unknown History enalapril maleate 5 mg tablet 10 mg PO BID 07/27/22 05/31/23 Unknown History furosemide 20 mg tablet (Lasix) 20 mg PO DAILY 09/04/22 03/14/23 Unknown History atenolol 50 mg tablet 50 mg PO DAILY 12/08/22 03/14/23 Unknown History ketorolac 0.5 % eye drops drp ophthalmic (eye) 12/08/22 03/14/23 Unknown History PreserVision AREDS 1 cap PO BID 05/31/23 05/31/23 Unknown History acetaminophen 500 mg tablet 1,000 mg PO BID PRN Pain 05/31/23 05/31/23 Unknown History cyanocobalamin (vitamin B-12) 1,000 mcg PO DAILY 05/31/23 05/31/23 Unknown History 1,000 mcg tablet (Vitamin B-12) gabapentin 100 mg capsule 100 mg PO BEDTIME 05/31/23 05/31/23 Unknown History glipizide 10 mg tablet 10 mg PO DAILY 05/31/23 05/31/23 Unknown History Exam Height,Weight and Vital Signs: Height 5 ft Weight 83.8 kg Last Vital Signs Pulse 63 05/31/23 12:18 Resp 16 05/31/23 12:18 BP 158/72 H 05/31/23 12:18 Pulse Ox 97 05/31/23 12:18 O2 Del Method Room Air 05/31/23 12:18 Vital Signs Temp Pulse Resp BP Pulse Ox O2 Del Method 07/03/23 07:30 96.4 F L 64 16 210/80 H 97 Room Air Pertinent Lab Results Pertinent Lab Results: Laboratory Tests 05/31/23 13:09 WBC 6.8 Hgb 13.8 Hct 41.4 Plt Count 191 Sodium 144 Potassium 4.0 Chloride 103 Carbon Dioxide 29 BUN 19 H Creatinine 0.75 Lab Results 05/31/23 07/03/23 Range/Units 13:09 07:05 WBC 6.8 (4.8-10.8) X10*3/uL RBC 4.64 (4.20-5.50) X10*6/uL Hgb 13.8 (12.0-16.0) g/dl Hct 41.4 (37.0-47.0) % MCV 89.2 (80.0-98.0) fL MCH 29.7 (27.0-33.0) pg MCHC 33.3 (31.0-35.0) g/dl RDW 14.4 (11.0-16.0) % Plt Count 191 (160-400) X10*3/uL MPV 10.8 (9.4-12.3) fL Absolute Nucleated RBC 0.000 (0.0-0.012) X10*3/uL Nucleated RBC % (auto) 0.0 (0.0-0.2) /100WBC Sodium 144 (135-145) mmol/L Potassium 4.0 (3.3-5.1) mmol/L Chloride 103 (96-108) mmol/L Carbon Dioxide 29 (22-29) mmol/L Anion Gap 16 (12-20) BUN 19 H (9-16) mg/dL Creatinine 0.75 (0.5-1.4) mg/dL Estim Creat Clear Calc 49.7 Estimated GFR > 60 POC Glucose 171 H (60-115) mg/dL Random Glucose 150 H (60-115) mg/dL Estimat Average Glucose 157 mg/dL Hemoglobin A1c % 7.1 H (<6.0) % Calcium 9.7 (8.4-10.2) mg/dL Total Bilirubin 0.3 (0.0-1.0) mg/dL AST 16 (5-31) U/L ALT 15 (0-31) U/L Alkaline Phosphatase 109 (39-117) U/L Total Protein 7.5 (6.5-8.0) g/dL Albumin 4.1 (3.5-5.0) g/dL Airway Mallampati Class: II TM Dist: >3cm Neck ROM: Full Loose/Missing/Broken Teeth: Yes (Top front teeth cracked/chipped. 1 missing top right. Denies loose teeth) Assessment and Plan Assessment Anesthesia Assessment: Anesthesia Plan Discussed, PAT Visit and Chart Reviewed Final Anesthetic Review Family History of Problems with Anesthesia: No History of Problems with Anesthesia: No NPO: Yes ASA Class: III Final Preanesthetic Review: No Changes in Pt Med Stat, Meds/Allgs Chart Reviewed, Consent Obtained/Reviewed and Anes Risks/Benef Reviewed Patient Risk: Intermediate Procedure Risk: Intermediate Assessment/Block/Sedation in SS: Assess/Block/Sedation-SS Anesthetic Plan Anesthetic Plan: GA Disposition: Standard PACU and Inp. Admit - Standard Bed
[2023-05-31 14:16] LABS: Hematocrit 41.4 % (37.0-47.0); Hemoglobin 13.8 g/dl (12.0-16.0); Mean Corpuscular HGB Conc 33.3 g/dl (31.0-35.0); Mean Corpuscular Hemoglobin 29.7 pg (27.0-33.0); Mean Corpuscular Volume 89.2 fL (80.0-98.0); Mean Platelet Volume 10.8 fL (9.4-12.3); Platelet Count 191 X10*3/uL (160-400); Red Blood Count 4.64 X10*6/uL (4.20-5.50); Red Cell Distribution Width 14.4 % (11.0-16.0); White Blood Count 6.8 X10*3/uL (4.8-10.8)
[2023-05-31 14:26] LABS: Estimated Average Glucose 157 mg/dL; Hemoglobin A1c % 7.1 % (<6.0)
[2023-05-31 14:40] LABS: Alanine Aminotransferase 15 U/L (0-31); Albumin Level 4.1 g/dL (3.5-5.0); Alkaline Phosphatase 109 U/L (39-117); Anion Gap 16 (12-20); Aspartate Amino Transferase 16 U/L (5-31); Bilirubin Total 0.3 mg/dL (0.0-1.0); Blood Urea Nitrogen 19 mg/dL (9-16); Calcium 9.7 mg/dL (8.4-10.2); Carbon Dioxide 29 mmol/L (22-29); Chloride 103 mmol/L (96-108); Creatinine Clr Calc Pharmacy 49.7; Estimated Glomerular Filt Rate > 60; Glucose Random 150 mg/dL (60-115); Sodium 144 mmol/L (135-145); Total Protein 7.5 g/dL (6.5-8.0)
[2023-07-03] VITALS (19 sets, daily range): BP systolic 144–210; BP diastolic 62–88; PULSE 64–92; RESP 12–18; TEMP 35.8–36.6; O2SAT 85–100; BMI 37.3
--- NOTE | ~2023-07-03 | FL_ITS ---
EXAMINATION: XR FLUOROSCOPY WITH IMAGES CLINICAL INFORMATION: L3-L4, L4-L5 and L5-S1 laminotomy COMPARISON: None available. TECHNIQUE: Fluoroscopy Supervised By: Dr. Martínez. Fluoroscopy Time: 3.2 seconds. Cumulative Dose: 2.9564 mGy. DAP: 1.2860 Gycm2. Images: 3. FINDINGS: 3 fluoroscopic images demonstrate metallic markers seen posterior to the posterior elements of L3-L5. Details can be seen in the intraoperative report. FL/FL guidance in OR IMPRESSION: Fluoroscopic guidance provided for L3-L4, L4-L5 and L5-S1 laminotomy.
[2023-07-03 07:08] LABS: Glucose, Whole Blood 171 mg/dL (60-115)
--- NOTE | 2023-07-03 07:25 | MHC.SHP ---
Pre-Procedural Eval Section A - 24 Hr Update-Section A only Date of Service: 07/03/23 Section B - Complete if H&P > 30 days Chief Complaint: s/p L3 D1 Lumbar decompression Allergies: Allergies Allergy/AdvReac Type Severity Reaction Status Date / Time amitriptyline Allergy Severe diarrhea, Verified 05/31/23 12:06 hallucinations, swelling edema amoxicillin [From Augmentin] Allergy Severe Hives Verified 05/31/23 12:06 clavulanic acid Allergy Severe Hives Verified 05/31/23 12:06 [From Augmentin] azithromycin Allergy Intermediate Hives Verified 05/31/23 12:06 clindamycin Allergy Intermediate Hives Verified 05/31/23 12:06 Review of Systems Sugical H&P ROS: Negative: Constitution, Cardiovascular, Respiratory, Neurological, Psychiatric, Hem-Onc, Allergic/Immunologic, Gastrointestinal, Genitourinary, Musculoskeletal, Integumentary, Endocrine and Eyes/Ears/Nose/Throat Exam Surgical H&P Exam: Not Evaluated: HEENT, Not Evaluated: Heart, Not Evaluated: Lungs, Not Evaluated: Extremities, Not Evaluated: Abdomen, Not Evaluated: Skin and Not Evaluated: Neurological Plan Diagnosis/Plan: Unchanged I have reviewed the history and physical and performed a pertinent physical examination on my patient. No changes have occurred unless specified. Plan remains the same, L3-S1 lumbar decompression Time Spent With Patient Time: Total time managing care of this patient today __8__ minutes.
[2023-07-03] MEDS: vancomycin HCL 1,500 MG in 0.9 % Sodium Chloride 500 ML 333.33 MG IV (07:26)
[2023-07-03] MEDS: Gabapentin 300 MG CAPSULE PO (07:26)
[2023-07-03] MEDS: Lactated Ringers 1,000 ML 100 ML IVCONT (07:26)
[2023-07-03] MEDS: methocarbamoL 750 MG TABLET PO (07:26)
--- NOTE | 2023-07-03 11:32 | W.PM.OPN ---
Operative Note Operative Note Date of Service: 07/03/23 Narrative: Preoperative Diagnosis: L3-4, L4-5 and L5-S1 spinal stenosis/lateral recess stenosis/neural foraminal stenosis Operation: Bilateral L3-4, L4-5 and L5-S1 Laminotomy, Partial facetectomy and foraminotomy with use of microscope Consent Informed Consent was obtained for this operation. I have explained the nature, purpose and benefits of the operation. I have discussed the risks and benefit of the operation including possible complications or adverse events with patient/family. Alternative(s) were discussed with the patient with their relative benefits and risks as well as the consequences of not accepting the operation were included in obtaining consent. Surgeon: AMANDA FARLEY MD, PHD Procedure Assisted By: Ubaldo Hodges Description of Procedure This 88-year-old female suffering from back pain neurogenic claudication with MRI showing multilevel spinal stenosis.. The patient was offered a decompression L3-4, L4-5 and L5-S1 levels. The procedure complications were explained. The patient was consented. The patient was brought to the operating room and endotracheally intubated. The patient was turned in prone position on the Loy frame. Prep and drape was done followed by timeout. The Physician marketing assistant manager provided access. A mid lumbar incision was made followed by release of the paravertebral muscle on the left side to expose the L3-S1 laminae and facet joints. Hemostasis was done. An intraoperative x-ray was obtained to confirm the correct level. The microscope was brought in. I took over the procedure. The high-speed drill was used to do a L3-4 laminotomy until flavum ligament was reached. A #2 Kerrison was used to expand the laminotomy near flush to the pedicles and to include a partial facetectomy. The flavum ligament was opened and resected with a #3 Kerrison to decompress the underlying thecal sac. The flavum ligament was removed to decompress the lateral recess and the exiting L4 nerve root. A long nerve hook could be easily passed along the medial side of the pedicles as a sign of adequate decompression. The patient was turned contralaterally to decompress the contralateral side. The spinous process was undercut after which with a nerve hook ligamentum flavum was released and with a 2. And 3 Kerrison the flavum ligament was resected to decompress the contralateral L4 nerve root. The similar type of decompression was repeated for the L4-L5 region where again significant stenosis was encountered. At L5-S1 only the left side was affected and therefore only the left S1 nerve root was decompressed and the thecal sac. Extensive hemostasis was done again. The microscope was removed. Hemostasis was done. The physician marketing assistant manager close the Incision in 2 layers. Steri-Strips were used to approximate incision. An OpSite with Tegaderm was used to cover the incision. All sponge needle counts were correct. Patient was extubated and transported in stable is to recovery room. Anesthesia: General Estimated Blood Loss (ml): 50 mL Complications: None Duration of Surgery: Under 90 Minutes Postoperative Plan: 23 hour stay for observation
--- NOTE | 2023-07-03 12:42 | PHA.MEDREC ---
Pharmacy Consult ? Medication Reconciliation Pharmacy has completed the medication reconciliation. Reviewed med rec done by nursing
[2023-07-03 14:15] LABS: Glucose, Whole Blood 224 mg/dL (60-115)
[2023-07-03] MEDS: 0.9 % Sodium Chloride 1,000 ML 75 ML IVCONT (15:32)
[2023-07-03] MEDS: Acetaminophen 1,000 MG/100 ML PIGGYBACK 400 MG IV ×2 (15:35→22:22)
[2023-07-03] MEDS: Ibuprofen 600 MG TABLET PO ×2 (15:36→21:14)
--- NOTE | 2023-07-03 15:57 | PC.NURSE ---
Patient diabetic,regular diet is ordered for patient,BRANDI Conner notified
--- NOTE | 2023-07-03 16:44 | PC.NURSE ---
BS checks are not ordered for this patient ,notified BRANDI Conner
[2023-07-03] MEDS: metFORMIN HCl 500 MG TABLET PO (17:26)
[2023-07-03] MEDS: vancomycin HCL 1,000 MG in 0.9 % Sodium Chloride 250 ML 270 MG IV (19:28)
[2023-07-03] MEDS: Enalapril Maleate 10 MG TABLET PO (21:14)
[2023-07-03] MEDS: Cholecalciferol (Vitamin D3) 25 MCG TABLET 50 MCG PO (21:14)
[2023-07-03] MEDS: Ascorbic Acid 500 MG TABLET PO (21:14)
[2023-07-03] MEDS: Gabapentin 100 MG CAPSULE PO (21:15)
[2023-07-03] MEDS: Docusate Sodium 100 MG CAPSULE PO (21:15)
[2023-07-04 03:17] VITALS: BP 130/60; PULSE 80; RESP 18; TEMP 36.1; O2SAT 100
[2023-07-04] MEDS: Acetaminophen 1,000 MG/100 ML PIGGYBACK 400 MG IV ×2 (03:44→11:30)
[2023-07-04 04:14] VITALS: RESP 18
[2023-07-04 07:47] VITALS: BP 144/67; PULSE 69; RESP 16; TEMP 36; O2SAT 99
[2023-07-04] MEDS: Enalapril Maleate 10 MG TABLET PO (07:59)
[2023-07-04] MEDS: Docusate Sodium 100 MG CAPSULE PO (07:59)
[2023-07-04] MEDS: Ibuprofen 600 MG TABLET PO (08:00)
[2023-07-04] MEDS: atenoloL 50 MG TABLET PO (08:00)
[2023-07-04] MEDS: Ascorbic Acid 500 MG TABLET PO (08:00)
[2023-07-04] MEDS: Cholecalciferol (Vitamin D3) 25 MCG TABLET 50 MCG PO (08:01)
[2023-07-04] MEDS: Multivitamin TABLET 1 TAB PO (08:01)
[2023-07-04 08:07] LABS: Glucose, Whole Blood 80 mg/dL (60-115)
[2023-07-04 08:20] VITALS: BP 144/67; PULSE 69; O2SAT 99
--- NOTE | 2023-07-04 08:45 | PM.DS ---
DS: Providers Provider Date of Service: 07/04/23 Date of admission: 07/03/23 06:38 Primary care physician: Antonia Benito DO DS: Summary Time Attestation Discharge Coordination Time (in mins): 15 Quality: Safe Use of Opioids Does Pt have an Active Cancer Diagnosis on the Problem List?: No Quality: Stroke Does the patient have a stroke diagnosis?: No Physical Exam Vital Signs: Vital Signs: Last Vital Signs Temp 96.8 F 07/04/23 07:47 Pulse 69 07/04/23 08:20 Resp 16 07/04/23 07:47 BP 144/67 H 07/04/23 08:20 Pulse Ox 99 07/04/23 08:20 O2 Del Method Nasal Cannula 07/04/23 07:47 O2 Flow Rate 2 07/04/23 07:47 BMI result Body Mass Index 37.3 DS: Data Data Completed and Pending Labs on day of discharge: Laboratory Results - last 24 hr 07/03/23 07/04/23 14:11 07:54 POC Glucose 224 H 80 Discharge Plan Discharge Anticipated Discharge Date/Time: 07/04/23 09:15 Patient Disposition: Home, Self-Care Discharge Diagnosis: s/p L3-S1 lumbar decompression Referrals: Antonia Benito DO [Primary Care Provider] - 1 Week Discharge Medications: New ibuprofen 600 mg tablet 600 mg PO Q8H PRN (Reason: moderate pain (scale score 5-6)) Qty: 30 0RF oxycodone 5 mg tablet 5 mg PO Q8H PRN (Reason: severe pain (scale score 7-10)) Qty: 30 0RF Rx Instructions: Partial Fill upon patient request. docusate sodium 100 mg capsule 100 mg PO BID PRN (Reason: constipation) Qty: 20 0RF Continued acetaminophen 500 mg Tablet 1,000 mg PO BID PRN (Reason: Pain) PreserVision AREDS 1 cap PO BID cyanocobalamin (vitamin B-12) [Vitamin B-12] 1,000 mcg Tablet 1,000 mcg PO DAILY gabapentin 100 mg capsule 100 mg PO BEDTIME glipizide 2.5 mg tablet extended release 24hr 5 mg PO DAILY metformin 500 mg tablet 500 mg PO BID multivitamin with minerals Capsule 1 cap PO DAILY ascorbic acid (vitamin C) 500 mg capsule 500 mg PO BID cholecalciferol (vitamin D3) 25 mcg (1,000 unit) capsule 50 mcg PO BID vitamin A 2,400 mcg capsule 2,400 mcg PO BID zinc acetate 50 mg (zinc) capsule 50 mg PO BID furosemide [Lasix] 20 mg tablet 20 mg PO DAILY Rx Instructions: orally twice a week enalapril maleate 5 mg tablet 10 mg PO DAILY atenolol 50 mg tablet 50 mg PO DAILY Discharge Orders: Discharge Order (Routine); Ordered 07/04/23 Ordered By: Ubaldo Falcon Diet: Advance to usual diet Activity on Discharge: As tolerated Stand Alone Forms: Patient Portal Discharge page Activity Restrictions/Additional Instructions: After your spinal surgery we ask you to observe the following restrictions/guidelines: Activity: It is normal to feel some discomfort as you increase your activity, but that will improve with time. We ask you avoid heavy lifting or acitivities that cause pain. As a general rule, 8lbs is a safe limit for lifting right after surgery. Walk as much as you feel comfortable but not to exhaustion. You will feel extra tired the first few days after surgery. Stay well hydrated. It is OK to walk up and down stairs You may return to driving when you are off narcotics (such as vicodin, oxycodone, dilaudid, etc), and you are back to normal functional capacity. If you have any concerns please check with office before driving. Return to work is specific to each patient and each surgery, so please speak with your doctor/PA at first follow up. Please bring paperwork such as FMLA at that time if you need it filled out. Medications: We will give you a short supply of narcotics after surgery (usually one weeks worth). If you need more please call the office but do not use more than prescribed. You will need to give our office 48 hours notice if you need narcotics refilled and we do not fill narcotics on weekends or evenings. If you are on a narcotic, it is a good idea to take a stool softener such as colace or senna to avoid constipation If you take blood thinner such as aspirin, Plavix, Coumadin, Effient, Eliquis etc for conditions such as Afib, DVT, Pulmonary embolus, coronary disease, stents etc please speak with your surgeon about specific details as to when you can resume these medications. You can resume NSAIDs on post op day 1 (eg: Motrin, Naproxen, etc). Follow up: Please call the office, , after surgery to arrange a 3 week follow up for wound check. Wound Care: You may remove your dressing on the first day after surgery. ?You may ?leave open to air. Please do not remove the steri strips underneath. they will fall off on their own in one week. IT IS NORMAL FOR THE WOUND TO OOZE OR BE BLOODY FOR A FEW DAYS AFTER SURGERY. ?IF THIS HAPPENS JUST PLACE NEW DRESSING OVER IT TO AVOID STAINING CLOTHES. You may shower on post op day # 1 We ask that you do not let the water soak the wound. If it does get wet, just towel dry lightly. Please do not scrub your incision or place any type of chemical/ointment on the wound. No tub baths, pools or jacuzzis for one month. If you have any leaking or redness from your wound, or fevers, please call the office. Care Plan Goals: Return to normal activity as tolerated Health Concerns: None Plan of Treatment: Follow-up in clinic in 2-3 weeks Assessment: POD: 1 Procedure: L3-S1 Lumbar decompression Sarah was seen this morning sitting upright in bed on 3-S finishing breakfast. She reports she has been up walking around is otherwise doing well. She feels her symptoms are much better than pre-operatively. She still reports mild pain in her low back, with good relief with pain medication. She is voiding well, tolerating diet. No acute overnight events. Afebrile, vital signs stable. No new neurological deficits. Back dressings have some staining without signs of hematoma. No active sanguineous drainage. Area is dry. Plan: Patient meets criteria to be medically discharged home. This was discussed with the attending neurosurgeon, Dr. Martínez.
--- NOTE | 2023-07-04 09:03 | MHC.CM.PN ---
Addendum entered by Amirah Schulz 07/04/23 09:48: DP: PT HAS BEEN MEDICALLY CLEARED FOR DC HOME, NO SERVICES. SON WILL TRANSPORT Original Note: [facility] DELIVERED PT LIVES WITH SON. USES WALKER/CANE FOR MOBILITY. +HCP AT HOME. PCP DR. PARADA DP: HOME, NO SERVICES ANTICIPATED. SON WILL TRANSPORT. CM WILL CONTINE TO FOLLOW FOR ANY CHANGE IN DC PLAN/NEEDS
--- NOTE | 2023-07-04 09:19 | HO.NEURO.PN ---
Neurosurgery Operative Note Date of Service: 07/04/23 Narrative: POD: 1 Procedure: L3-S1 Lumbar decompression Sarah was seen this morning sitting upright in bed on 3-S finishing breakfast. She reports she has been up walking around is otherwise doing well. She feels her symptoms are much better than pre-operatively. She still reports mild pain in her low back, with good relief with pain medication. She is voiding well, tolerating diet. No acute overnight events. Afebrile, vital signs stable. No new neurological deficits. Back dressing has some staining without signs of hematoma. No active sanguineous drainage. Area is dry. Plan: Patient meets criteria to be medically discharged home. This was discussed with the attending neurosurgeon, Dr. Martínez.
[2023-07-04 09:40] LABS: Creatinine Clr Calc Pharmacy 55.8; Estimated Glomerular Filt Rate > 60
[2023-07-04] MEDS: glipiZIDE XL 5 MG TAB.ER.24 PO (09:50)
[2023-07-04] MEDS: metFORMIN HCl 500 MG TABLET PO (09:50)
[2023-07-04 11:42] LABS: Glucose, Whole Blood 137 mg/dL (60-115)
--- NOTE | 2023-07-04 15:00 | HO.POSTANES ---
Post Anesthesia Evaluation Post Anesthesia Evaluation Date of Service: 07/04/23 Vital Signs: Vital Signs Temp Pulse Resp BP Pulse Ox O2 Del Method O2 Flow Rate 07/04/23 08:20 69 144/67 H 99 07/04/23 07:47 96.8 F 69 16 144/67 H 99 Nasal Cannula 2 07/04/23 04:14 18 07/04/23 03:17 97.0 F 80 18 130/60 100 Nasal Cannula 2 Anesthesia: General Endotracheal-GETA Mental Status: Awake Pain Control: Satisfactory Nausea/Vomiting: None Hydration: Adequate Anesthesia-Related Issues: No Anes. Related Issues
== END 2023-07-04 13:51 | disposition home or self-care (01) | DRG 520 ==
LOC: HO.SSSA 06:43 → HO.S3 14:00
PROVIDERS: Neurological Surgery; Nurse Practitioner; Admitting Provider Physician Assistant; PCP Student in an Organized Health Care Education/Training Program; Visit Provider Physician Assistant
PROC: 00NY0ZZ Release Lumbar Spinal Cord, Open Approach (ICD-10-PCS; principal; 2023-07-03 09:00)
DX: M48.062 Spinal stenosis, lumbar region with neurogenic claudication (principal); M48.07 Spinal stenosis, lumbosacral region; E78.5 Hyperlipidemia, unspecified; I10 Essential (primary) hypertension; Z79.84 Long term (current) use of oral hypoglycemic drugs; Z79.899 Other long term (current) drug therapy
CPT/HCPCS: 36415; 80053; 82565; 82947; 83036; 85027; 93005; 97116; 97161; J0131; J1100; J2405; J2704; J3010; J3370; J3371

== ENCOUNTER → 2023-07-03 06:38 | Outpatient (BNV) | payer MEDICARE, SELFPAY | PROVIDERS: Admitting Provider Physician Assistant; PCP Student in an Organized Health Care Education/Training Program; Visit Provider Neurological Surgery | DX: Z48.89 Encounter for other specified surgical aftercare (principal) | CPT/HCPCS: 63047; 63048; 99024; 99499 ==